=== PATIENT | female | born 1935 | race Caucasian/White ===

== ENCOUNTER 2020-10-12 18:57 | Inpatient (IN) | payer MEDICARE, SELFPAY ==
[~2020-10-12] VITALS: Ht 157.5 cm; Wt 55.4 kg
[2020-10-12 20:04] LABS: HEMOGLOBIN 12.8 gm/dl (12.3-15.3); RED BLOOD COUNT 4.24 M/UL (4.00-5.10); WHITE BLOOD COUNT 10.9 K/UL (4.5-11.0)
[2020-10-12 20:27] LABS: BUN/CREATININE RATIO 21 (0-10)
[2020-10-12] MEDS ORDERED: OCUVITE ADULT1 EAC1 PO (23:28)
[2020-10-12] MEDS ORDERED: LATANOPROST2.5 ML OP (23:28)
[2020-10-12] MEDS ORDERED: CENTRUM SILVER1 EAC4 PO (23:29)
[2020-10-13 03:39] LABS: HEMOGLOBIN 12.1 gm/dl (12.3-15.3); RED BLOOD COUNT 3.98 M/UL (4.00-5.10); WHITE BLOOD COUNT 9.1 K/UL (4.5-11.0)
[2020-10-13 03:56] LABS: BUN/CREATININE RATIO 19 (0-10)
[2020-10-14 03:15] LABS: HEMOGLOBIN 10.7 gm/dl (12.3-15.3); WHITE BLOOD COUNT 8.3 K/UL (4.5-11.0)
[2020-10-14 03:16] LABS: RED BLOOD COUNT 3.52 M/UL (4.00-5.10)
[2020-10-14 03:38] LABS: BUN/CREATININE RATIO 21 (0-10)
[2020-10-15 04:04] LABS: HEMOGLOBIN 10.7 gm/dl (12.3-15.3); RED BLOOD COUNT 3.57 M/UL (4.00-5.10); WHITE BLOOD COUNT 7.4 K/UL (4.5-11.0)
[2020-10-15 04:16] LABS: BUN/CREATININE RATIO 22 (0-10)
[2020-10-16 06:32] LABS: HEMOGLOBIN 11.3 gm/dl (12.3-15.3); RED BLOOD COUNT 3.73 M/UL (4.00-5.10); WHITE BLOOD COUNT 6.1 K/UL (4.5-11.0)
[2020-10-16 06:43] LABS: BUN/CREATININE RATIO 19 (0-10)
[2020-10-16] MEDS ORDERED: POLYETHYLENE GL17 GM PO (10:15)
[2020-10-16] MEDS ORDERED: CAL-CITRATE PL1 EACH PO (10:15)
[2020-10-16] MEDS ORDERED: LOVENOX40 MG/0.4 SQ (11:11)
--- NOTE | 2020-10-16 12:09 | NUR ---
REPORT CALLED TO YVONNE CARPENTER AT [facility] AT THIS TIME.
--- NOTE | 2020-10-16 13:28 | NUR ---
CONTACTED [facility] AND SPOKE WITH MEHRAN HARRISON AT THIS TIME. HE STATES THAT THEY WILL GET A TRUCK TO [facility]. PATIENT UPDATED ON PLAN OF CARE.
[2021-02-10] MEDS ORDERED: IBUPROFEN200 M1 PO (21:20)
== END 2020-10-16 14:01 | DRG 481 ==
LOC: ER1 18:57 → M/S 20:34 → CDU 20:34 → M/S 23:35
PROVIDERS: Emergency Medicine; Orthopaedic Surgery; Physician Assistant; Physician Assistant Medical; ADMIT Internal Medicine
PROC: 0QH734Z Insertion of Internal Fixation Device into Left Upper Femur, Percutaneous Approach (ICD-10-PCS; principal; 2020-10-13 10:16)
DX: S72.035A Nondisplaced midcervical fracture of left femur, initial encounter for closed fracture (principal); E87.1 Hypo-osmolality and hyponatremia; W19.XXXA Unspecified fall, initial encounter; H40.9 Unspecified glaucoma; R73.9 Hyperglycemia, unspecified; Z20.822 Contact with and (suspected) exposure to COVID-19
CPT/HCPCS: 36415; 71045; 73502; 73552; 76000; 80048; 80053; 85025; 85027; 93005; 97110-GP-CQ; 97116; 97116-GP-CQ; 97162; 97166; 97530; 97535; 99284; J0690; J1100; J1650; J2001; J2270; J2405; J2704; J2710; J3010; J7120; U0002

== ENCOUNTER 2021-02-10 16:10 | Inpatient (IN) | payer MEDICARE, OTHER ==
[~2021-02-10] VITALS: Ht 157.5 cm; Wt 52.6 kg
[~2021-02-10 16:10] MED LIST: CAL-CITRATE PL1 EACH PO; CENTRUM SILVER1 EAC4 PO; LATANOPROST2.5 ML OP; LOVENOX40 MG/0.4 SQ; OCUVITE ADULT1 EAC1 PO; POLYETHYLENE GL17 GM PO
[2021-02-10 17:34] LABS: HEMOGLOBIN 13.7 gm/dl (12.3-15.3); RED BLOOD COUNT 4.45 M/UL (4.00-5.10); WHITE BLOOD COUNT 6.9 K/UL (4.5-11.0)
[2021-02-10 17:55] LABS: BUN/CREATININE RATIO 27 (0-10)
[2021-02-11 04:46] LABS: BUN/CREATININE RATIO 21 (0-10)
--- NOTE | 2021-02-11 11:49 | NUR ---
PATIENT HAS AN ORDER FOR AN EYE PATCH TO BE ROTATED ON AND OFF ALTERNATING EYES Q2 HOURS WHILE PATIENT IS AWAKE. ER WAS CALLED, OR WAS CALLED, CHARGE NURSE PROVIDED EYE SHIELD FROM ER. RESOURSE NURSE WAS [place] CONTACTED. NO EYE PATCH COULD BE FOUND. HOUSE WAS NOTIFIED AND SAID THEY WOULD WORK ON FINDING AN EYE PATCH FOR PATIENT. PRIMARY NURSE USED EYE GAURD, COBAN AND MEDIPORE TAPE TO PAD EYE GAURD TO USE PATCH UNTIL A BETTER OPTION BECAME AVAILABLE. WILL CONTINUE TO MONITOR.
== END 2021-02-11 19:04 | disposition home or self-care (01) | DRG 123 ==
LOC: ER1 16:10 → MED SURG 4 21:06 → CDU 21:06 → MED SURG 4 22:12
PROVIDERS: Family Medicine; ADMIT Internal Medicine
DX: H47.091 Other disorders of optic nerve, not elsewhere classified, right eye (principal); E44.0 Moderate protein-calorie malnutrition; H02.401 Unspecified ptosis of right eyelid; R73.03 Prediabetes; H40.9 Unspecified glaucoma; Z20.822 Contact with and (suspected) exposure to COVID-19; H50.112 Monocular exotropia, left eye; Z79.82 Long term (current) use of aspirin
CPT/HCPCS: 36415; 70450; 70496; 70498; 70551; 71045; 80048; 80053; 80061; 82140; 82550; 82553; 82607; 82728; 82746; 83036; 83540; 83550; 83605; 83735; 83874; 84100; 84439; 84443; 84484; 84550; 85025; 85610; 85652; 86140; 93005; 99285; G0378; Q9967; U0002

== ENCOUNTER 2021-02-20 18:22 | Emergency (ER) | payer MEDICARE ==
[2021-02-20 21:08] LABS: BUN/CREATININE RATIO 22 (0-10)
== END 2021-02-20 22:00 | disposition home or self-care (01) ==
LOC: ER1 18:22
PROVIDERS: Physician Assistant
DX: H57.9 Unspecified disorder of eye and adnexa (principal); E11.9 Type 2 diabetes mellitus without complications; I10 Essential (primary) hypertension; E78.5 Hyperlipidemia, unspecified
CPT/HCPCS: 80048; 99284; Q9967

== ENCOUNTER 2021-03-17 13:25 | Inpatient (IN) | payer MEDICARE ==
[~2021-03-17] VITALS: Ht 157.5 cm; Wt 52.2 kg
[2021-03-17 14:49] LABS: HEMOGLOBIN 12.9 gm/dl (12.3-15.3); RED BLOOD COUNT 4.27 M/UL (4.00-5.10); WHITE BLOOD COUNT 11.5 K/UL (4.5-11.0)
[2021-03-17 15:49] LABS: BUN/CREATININE RATIO 22 (0-10)
[2021-03-18 00:15] LABS: BUN/CREATININE RATIO 19 (0-10)
[2021-03-18 04:26] LABS: HEMOGLOBIN 13.2 gm/dl (12.3-15.3); RED BLOOD COUNT 4.33 M/UL (4.00-5.10); WHITE BLOOD COUNT 11.6 K/UL (4.5-11.0)
[2021-03-18 04:59] LABS: BUN/CREATININE RATIO 17 (0-10)
[2021-03-18] MEDS ORDERED: VENLAFAXINE H37.5 M1 PO (09:45)
[2021-03-18] MEDS ORDERED: HYGROTON TAB 2525 MG PO (09:45)
[2021-03-18] MEDS ORDERED: ZESTRIL/PRINIVI10 MG PO (09:46)
[2021-03-18] MEDS ORDERED: ACETAMINOPHEN-1 EAC1 PO (09:46)
[2021-03-18] MEDS ORDERED: ACID REDUCER20 MG PO (09:47)
[2021-03-18] MEDS ORDERED: PRAVASTATIN SOD40 MG PO (09:47)
[2021-03-18] MEDS ORDERED: GLUCOPHAGE 500500 MG PO (09:47)
[2021-03-18 10:59] LABS: BUN/CREATININE RATIO 15 (0-10)
[2021-03-18] MEDS ORDERED: IBUPROFEN200 M1 PO (21:20)
[2021-03-19 04:34] LABS: RED BLOOD COUNT 4.11 M/UL (4.00-5.10); WHITE BLOOD COUNT 10.7 K/UL (4.5-11.0)
[2021-03-19 05:04] LABS: BUN/CREATININE RATIO 20 (0-10)
[2021-03-19 12:29] LABS: BUN/CREATININE RATIO 19 (0-10)
[2021-03-19 17:50] LABS: BUN/CREATININE RATIO 23 (0-10)
--- NOTE | 2021-03-19 20:01 | NUR ---
ATTEMPTED TO NOTIFY DR. LAW OF PATIENT'S LABE RESULTS. CALL BACK NUMBER LEFT ON PAGER. CLIENT ONBOARDING ANALYST NURSE NOTIFIED.
[2021-03-19 22:33] LABS: BUN/CREATININE RATIO 28 (0-10)
[2021-03-20 05:36] LABS: BUN/CREATININE RATIO 28 (0-10)
[2021-03-20 16:36] LABS: BUN/CREATININE RATIO 27 (0-10)
[2021-03-20 21:56] LABS: BUN/CREATININE RATIO 24 (0-10)
[2021-03-21 03:39] LABS: HEMOGLOBIN 11.6 gm/dl (12.3-15.3); RED BLOOD COUNT 3.83 M/UL (4.00-5.10); WHITE BLOOD COUNT 9.5 K/UL (4.5-11.0)
[2021-03-21 04:10] LABS: BUN/CREATININE RATIO 20 (0-10)
[2021-03-21 23:27] LABS: BUN/CREATININE RATIO 26 (0-10)
[2021-03-22 06:04] LABS: HEMOGLOBIN 11.3 gm/dl (12.3-15.3); RED BLOOD COUNT 3.8 M/UL (4.00-5.10); WHITE BLOOD COUNT 7.7 K/UL (4.5-11.0)
[2021-03-22 06:11] LABS: BUN/CREATININE RATIO 21 (0-10)
[2021-03-22 13:15] LABS: BUN/CREATININE RATIO 22 (0-10)
[2021-03-23 05:26] LABS: HEMOGLOBIN 10.9 gm/dl (12.3-15.3); RED BLOOD COUNT 3.65 M/UL (4.00-5.10); WHITE BLOOD COUNT 6.9 K/UL (4.5-11.0)
[2021-03-23 06:06] LABS: BUN/CREATININE RATIO 22 (0-10)
[2021-03-23 10:31] LABS: BUN/CREATININE RATIO 21 (0-10)
[2021-03-23] MEDS ORDERED: CEFUROXIME250 MG PO (15:00)
[2021-03-23] MEDS ORDERED: POLYETHYLENE GL17 GM PO (15:00)
[2021-03-23] MEDS ORDERED: DOCUSATE SODIU100 MG PO (15:00)
[2021-03-23] MEDS ORDERED: SODIUM CHLORIDE1 G1 PO (15:00)
== END 2021-03-23 17:50 | disposition home health service (06) | DRG 641 ==
LOC: ER1 13:25 → CDU 18:04 → MED SURG 4 03-19 16:10
PROVIDERS: Internal Medicine; Internal Medicine Nephrology; Physician Assistant; ADMIT Internal Medicine
DX: E87.1 Hypo-osmolality and hyponatremia (principal); N39.0 Urinary tract infection, site not specified; I44.0 Atrioventricular block, first degree; Z20.822 Contact with and (suspected) exposure to COVID-19; E83.42 Hypomagnesemia; I10 Essential (primary) hypertension; E87.6 Hypokalemia; E86.0 Dehydration; E87.8 Other disorders of electrolyte and fluid balance, not elsewhere classified; M25.559 Pain in unspecified hip; B96.89 Other specified bacterial agents as the cause of diseases classified elsewhere; H02.401 Unspecified ptosis of right eyelid; R53.81 Other malaise; E78.00 Pure hypercholesterolemia, unspecified; T50.2X5A Adverse effect of carbonic-anhydrase inhibitors, benzothiadiazides and other diuretics, initial encounter; E78.5 Hyperlipidemia, unspecified; E11.9 Type 2 diabetes mellitus without complications; Z83.3 Family history of diabetes mellitus; Z87.81 Personal history of (healed) traumatic fracture
CPT/HCPCS: 36415; 70450; 71045; 80048; 80053; 81001; 82436; 82533; 82550; 82553; 82962; 83735; 83874; 84100; 84133; 84295; 84300; 84439; 84443; 84484; 85025; 87077; 87086; 87186; 93005; 97116-GP-CQ; 97162; 97530-GP-CQ; 99285; J0696; J1650; J2405; J7030; J7131; U0002

== ENCOUNTER 2021-06-12 08:15 | Inpatient (IN) | payer MEDICARE ==
[~2021-06-12] VITALS: Ht 157.5 cm; Wt 50.3 kg
[~2021-06-12 08:15] MED LIST changes: +ACETAMINOPHEN-1 EAC1 PO; +ACID REDUCER20 MG PO; +CEFUROXIME250 MG PO; -CENTRUM SILVER1 EAC4 PO; +DOCUSATE SODIU100 MG PO; +GLUCOPHAGE 500500 MG PO; +HYGROTON TAB 2525 MG PO; +IBUPROFEN200 M1 PO; -LATANOPROST2.5 ML OP; +PRAVASTATIN SOD40 MG PO; +SODIUM CHLORIDE1 G1 PO; +VENLAFAXINE H37.5 M1 PO; +ZESTRIL/PRINIVI10 MG PO
[2021-06-12 09:47] LABS: HEMOGLOBIN 12.2 gm/dl (12.3-15.3); RED BLOOD COUNT 4.07 M/UL (4.00-5.10); WHITE BLOOD COUNT 10.1 K/UL (4.5-11.0)
[2021-06-12 10:13] LABS: BUN/CREATININE RATIO 20 (0-10)
[2021-06-12] MEDS ORDERED: HYGROTON TAB 2525 MG PO (14:20)
[2021-06-12] MEDS ORDERED: LATANOPROST2.5 ML EYEBOTH (23:28)
[2021-06-12] MEDS ORDERED: CENTRUM SILVER1 EAC4 PO (23:29)
[2021-06-13 10:07] LABS: HEMOGLOBIN 10.8 gm/dl (12.3-15.3); RED BLOOD COUNT 3.73 M/UL (4.00-5.10); WHITE BLOOD COUNT 8.4 K/UL (4.5-11.0)
[2021-06-13 10:36] LABS: BUN/CREATININE RATIO 25 (0-10)
[2021-06-14 06:39] LABS: RED BLOOD COUNT 3.69 M/UL (4.00-5.10); WHITE BLOOD COUNT 7.7 K/UL (4.5-11.0)
[2021-06-14 06:58] LABS: BUN/CREATININE RATIO 23 (0-10)
--- NOTE | 2021-06-14 12:30 | NUR ---
PATIENT ARRIVED BACK TO FLOOR AT THIS TIME FROM PACU. ALERT, AND AROUSABLE TO VERBAL STIMULI. OXYGEN IN USE PER PHYSICIAN'S ISNTRUCTIONS. POLAR ICE IN PLACE. VITAL SIGNS WNL. CALL LIGHT IN EASY REACH. WILL CONTINUE TO MONITOR.
[2021-06-15 08:52] LABS: HEMOGLOBIN 10.1 gm/dl (12.3-15.3); RED BLOOD COUNT 3.37 M/UL (4.00-5.10); WHITE BLOOD COUNT 9.6 K/UL (4.5-11.0)
[2021-06-15 09:10] LABS: BUN/CREATININE RATIO 19 (0-10)
[2021-06-16 07:02] LABS: HEMOGLOBIN 9.5 gm/dl (12.3-15.3); RED BLOOD COUNT 3.27 M/UL (4.00-5.10); WHITE BLOOD COUNT 7.5 K/UL (4.5-11.0)
[2021-06-16 07:26] LABS: BUN/CREATININE RATIO 24 (0-10)
[2021-06-16] MEDS ORDERED: ACETAMINOPHEN500 MG PO (10:17)
[2021-06-18 04:25] LABS: HEMOGLOBIN 9.4 gm/dl (12.3-15.3); RED BLOOD COUNT 3.18 M/UL (4.00-5.10); WHITE BLOOD COUNT 6.5 K/UL (4.5-11.0)
[2021-06-18 04:43] LABS: BUN/CREATININE RATIO 21 (0-10)
[2021-06-19 06:22] LABS: HEMOGLOBIN 9.3 gm/dl (12.3-15.3); RED BLOOD COUNT 3.16 M/UL (4.00-5.10); WHITE BLOOD COUNT 8.1 K/UL (4.5-11.0)
[2021-06-19 07:10] LABS: BUN/CREATININE RATIO 20 (0-10)
[2021-06-20 06:58] LABS: HEMOGLOBIN 9.3 gm/dl (12.3-15.3); RED BLOOD COUNT 3.14 M/UL (4.00-5.10); WHITE BLOOD COUNT 9.8 K/UL (4.5-11.0)
[2021-06-20 08:13] LABS: BUN/CREATININE RATIO 17 (0-10)
[2021-06-20] MEDS ORDERED: HYDROCODON-ACE1 EAC4 PO (12:42)
[2021-06-20] MEDS ORDERED: COLACE100 MG PO (12:42)
[2021-06-20] MEDS ORDERED: MINERAL OIL473 M2 PO (12:42)
[2021-06-20] MEDS ORDERED: ENOXAPARIN40 MG/0.4 SC (12:42)
[2021-06-20] MEDS ORDERED: LOPRESSOR 25 MG25 MG PO (12:42)
--- NOTE | 2021-06-20 17:38 | NUR ---
PT ROOM AIR O2 SATURATION OF 06/20/21 AT 1700 IS 92%. WCTM
== END 2021-06-20 18:45 | DRG 522 ==
LOC: ER1 08:15 → M/S 11:38 → CDU 11:38 → M/S 13:40
PROVIDERS: Internal Medicine; Physician Assistant Medical; ADMIT Internal Medicine
PROC: 0HQ0XZZ Repair Scalp Skin, External Approach (ICD-10-PCS; principal; 2021-06-12)
PROC: 0SRR0J9 Replacement of Right Hip Joint, Femoral Surface with Synthetic Substitute, Cemented, Open Approach (ICD-10-PCS; 2021-06-14)
DX: S72.091A Other fracture of head and neck of right femur, initial encounter for closed fracture (principal); S42.201A Unspecified fracture of upper end of right humerus, initial encounter for closed fracture; I47.1 Supraventricular tachycardia; E87.1 Hypo-osmolality and hyponatremia; I48.0 Paroxysmal atrial fibrillation; I10 Essential (primary) hypertension; Z20.822 Contact with and (suspected) exposure to COVID-19; W01.0XXA Fall on same level from slipping, tripping and stumbling without subsequent striking against object, initial encounter; I44.1 Atrioventricular block, second degree; S01.91XA Laceration without foreign body of unspecified part of head, initial encounter; R53.83 Other fatigue; Z96.652 Presence of left artificial knee joint; E11.9 Type 2 diabetes mellitus without complications; E78.5 Hyperlipidemia, unspecified; H49.00 Third [oculomotor] nerve palsy, unspecified eye; Z98.890 Other specified postprocedural states; Z79.84 Long term (current) use of oral hypoglycemic drugs; Z79.899 Other long term (current) drug therapy; Z83.3 Family history of diabetes mellitus
CPT/HCPCS: ECHO; 12001; 36415; 70450; 71045; 72125; 72170; 73030; 73552; 80048; 80053; 81001; 82550; 82553; 82962; 83735; 83874; 84484; 85025; 85027; 87040; 87086; 93005; 93306; 94760; 96374; 96375; 97110; 97110-GP-CQ; 97163; 97166; 97530; 97530-GP-CQ; 97535; 99285; C1776; J0690; J1100; J1650; J2001; J2270; J2405; J2704; J2710; J2795; J3010; J7120; U0002